=== PATIENT | male | born 1945 | race Caucasian/White ===

== ENCOUNTER 2016-11-30 09:14 | Inpatient (IN) | payer MEDICARE ==
[2016-11-30] MEDS ORDERED: ACETAMINOPHEN IV (For NPO) 1,000 MG in SALINE 100 100ML.BAG IVPB STA (09:21)
[2016-11-30] MEDS ORDERED: IBUPROFEN IV 600 MG in SODIUM CHLORIDE 0.9% 250 ML IV STA (09:22)
--- NOTE | 2016-11-30 09:24 | ED ---
General Adult HPI - General Stated complaint: SOB Time Seen by Provider: 11/30/16 09:14 Source: RN notes reviewed - History of Present Illness Initial comments: This is a 71-year-old male who presents emergency Department with a past medical history significant for cervical spinal fusion after having had a C2 fracture. Patient also has paralysis of his upper and lower extremities but does have movement of his fingers and and feet. According to the senior care the patient was having difficulty breathing however the is here and states she does not notice anything different about him and states that he appears to be in the same condition he has been. There is some also mentioned patient appears to be much weaker than normal. halfway did not mention any fever there was no history of any vomiting or diarrhea there was no history of him complaining of any pain anywhere. I took a temperature when I saw the patient has 100.7 fever - Related Data Home Medications Medication Instructions Recorded Confirmed Acetaminophen [Tylenol] 650 mg PO Q4H PRN 11/30/16 11/30/16 Acetylcysteine Solution 20% 3 ml INHALATION RT-Q1H PRN 11/30/16 11/30/16 Amino Acids/Protein Hydrolys 30 ml PEG/G-TUBE BID@0900,209911/30/16 11/30/16 [Pro-Stat Supplement] Artificial Tears-Hypromellose 1 drops BOTH EYES TID PRN 11/30/16 11/30/16 [Artificial Tear Drops] Ascorbic Acid [Vitamin C] 500 mg PEG/G-TUBE DAILY@0900 11/30/16 11/30/16 Calcipotriene/Betamethasone 1 applic TP DAILY 11/30/16 11/30/16 [Calcipotriene-Betameth Dp Oint] Calcium Carbonate/Vitamin D3 1 tab PEG/G-TUBE HS@209911/30/16 11/30/16 [Calcium 600-Vit D3 200 Tablet] Cholecalciferol [Vitamin D3] 2,000 unit PEG/G-TUBE DAILY@0900 11/30/16 11/30/16 Doxycycline Hyclate 100 mg PEG/G-TUBE BID@0800,209911/30/16 11/30/16 Enoxaparin [Lovenox] 40 mg SQ DAILY@1700 11/30/16 11/30/16 Famotidine [Pepcid] 20 mg PEG/G-TUBE BID@0900,209911/30/16 11/30/16 INSULIN LISPRO (HumaLOG) [HumaLOG] See Protocol SQ Q6H 11/30/16 11/30/16 Ipratropium-Albuterol Nebulize 3 ml INHALATION RT-QID 11/30/16 11/30/16 [Duoneb 0.5 mg-3 mg/3 ml Soln] Metoprolol Tartrate [Lopressor] 25 mg PEG/G-TUBE BID@899,209911/30/16 11/30/16 Sennosides-Docusate Sodium 1 tab PEG/G-TUBE DAILY@89911/30/16 11/30/16 [Senokot-S] Triamcinolone 0.1% Cream [Kenalog] 1 applic TOPICAL HS@199911/30/16 11/30/16 Vitamin E (Dl,Tocopheryl Acet) 400 unit PEG/G-TUBE DAILY@89911/30/16 11/30/16 [Vitamin E] Allergies Allergy/AdvReac Type Severity Reaction Status Date / Time No Known Allergies Allergy Verified 11/30/16 09:19 Review of Systems ROS Statement: Those systems with pertinent positive or pertinent negative responses have been documented in the HPI. ROS Other: All systems not noted in ROS Statement are negative. General Exam - General Exam Comments Initial Comments: GENERAL: Patient is well-developed and well-nourished. Patient is nontoxic and well- hydrated and is in no acute distress. ENT: Neck is soft and supple. No significant lymphadenopathy is noted. Oropharynx is clear. Moist mucous membranes. Neck has full range of motion without eliciting any pain. Tracheostomy site appears to be draining a little bit of blood as well as what appears to be pus EYES: The sclera were anicteric and conjunctiva were pink and moist. Extraocular movements were intact and pupils were equal round and reactive to light. Eyelids were unremarkable. PULMONARY: Unlabored respirations. Good breath sounds bilaterally. Patient has what appears to be some crackles in the left base but difficulty here because he does not take a good breath and he is always making upper respiratory noises. CARDIOVASCULAR: There is a regular rate and rhythm without any murmurs gallops or rubs. ABDOMEN: Soft and nontender with normal bowel sounds. No palpable organomegaly was noted. There is no palpable pulsatile mass. SKIN: Skin is clear with no lesions or rashes and otherwise unremarkable. NEUROLOGIC: Patient is alert and oriented 2. Cranial nerves II through XII are grossly intact. Patient can only move his hands and feet a little. MUSCULOSKELETAL: Normal extremities with adequate strength and full range of motion. No lower extremity swelling or edema. No calf tenderness. LYMPHATICS: No significant lymphadenopathy is noted Course Vital Signs 11/30/16 11/30/16 09:20 09:57 Temperature 100.7 F H 100.1 F H Pulse Rate 108 H 99 Respiratory 36 H 36 H Rate Blood Pressure 140/79 139/79 O2 Sat by Pulse 96 95 Oximetry Medical Decision Making - Medical Decision Making Patient's EKG shows sinus tachycardia at 107 bpm SC interval is 156 dresses 110 QT interval 352 QTC is 469. Patient's EKG shows no ST segment elevation or depression Patient has a urinary tract infection started patient on Levaquin immediately. - Lab Data Result diagrams: 11/30/16 09:48 11/30/16 09:48 Lab Results 11/30/16 11/30/16 11/30/16 Range/Units 09:48 09:48 09:48 WBC 10.1 (3.8-10.6) k/uL RBC 3.94 L (4.30-5.90) m/uL Hgb 12.3 L (13.0-17.5) gm/dL Hct 37.1 L (39.0-53.0) % MCV 94.3 (80.0-100.0) fL MCH 31.2 (25.0-35.0) pg MCHC 33.1 (31.0-37.0) g/dL RDW 14.0 (11.5-15.5) % Plt Count 177 (150-450) k/uL Neutrophils % 83 % Lymphocytes % 6 % Monocytes % 4 % Eosinophils % 6 % Basophils % 0 % Neutrophils # 8.5 H (1.3-7.7) k/uL Lymphocytes # 0.6 L (1.0-4.8) k/uL Monocytes # 0.4 (0-1.0) k/uL Eosinophils # 0.6 (0-0.7) k/uL Basophils # 0.0 (0-0.2) k/uL PT (9.0-12.0) sec INR (<1.1) APTT (22.0-30.0) sec Sodium 140 (137-145) mmol/L Potassium 4.2 (3.5-5.1) mmol/L Chloride 98 (98-107) mmol/L Carbon Dioxide 35 H (22-30) mmol/L Anion Gap 7 mmol/L BUN 13 (9-20) mg/dL Creatinine 0.35 L (0.66-1.25) mg/dL Est GFR (MDRD) Af Amer >60 (>60 ml/min/1.73 sqM) Est GFR (MDRD) Non-Af >60 (>60 ml/min/1.73 sqM) Glucose 167 H (74-99) mg/dL Plasma Lactic Acid Karlo (0.7-2.0) mmol/L Calcium 9.2 (8.4-10.2) mg/dL Magnesium 1.7 (1.6-2.3) mg/dL Total Bilirubin 0.4 (0.2-1.3) mg/dL AST 16 L (17-59) U/L ALT 39 (21-72) U/L Alkaline Phosphatase 115 (38-126) U/L Total Creatine Kinase 71 (55-170) U/L CK-MB (CK-2) 2.1 (0.0-2.4) ng/mL CK-MB (CK-2) Rel Index 3.0 Troponin I <0.012 (0.000-0.034) ng/mL Total Protein 6.3 (6.3-8.2) g/dL Albumin 3.3 L (3.5-5.0) g/dL Urine Color Urine Appearance (Clear) Urine pH (5.0-8.0) Ur Specific [place] (1.001-1.035) Urine Protein (Negative) Urine Glucose (UA) (Negative) Urine Ketones (Negative) Urine Blood (Negative) Urine Nitrate (Negative) Urine Bilirubin (Negative) Urine Urobilinogen (<2.0) mg/dL Ur Leukocyte Esterase (Negative) Urine RBC (0-5) /hpf Urine WBC (0-5) /hpf Urine WBC Clumps (None) /hpf Urine Bacteria (None) /hpf Urine Mucus (None) /hpf Influenza Type A RNA (Not Detectd) Influenza Type B (PCR) (Not Detectd) 11/30/16 11/30/16 11/30/16 Range/Units 09:48 09:48 09:48 WBC (3.8-10.6) k/uL RBC (4.30-5.90) m/uL Hgb (13.0-17.5) gm/dL Hct (39.0-53.0) % MCV (80.0-100.0) fL MCH (25.0-35.0) pg MCHC (31.0-37.0) g/dL RDW (11.5-15.5) % Plt Count (150-450) k/uL Neutrophils % % Lymphocytes % % Monocytes % % Eosinophils % % Basophils % % Neutrophils # (1.3-7.7) k/uL Lymphocytes # (1.0-4.8) k/uL Monocytes # (0-1.0) k/uL Eosinophils # (0-0.7) k/uL Basophils # (0-0.2) k/uL PT 10.3 (9.0-12.0) sec INR 1.0 (<1.1) APTT 23.4 (22.0-30.0) sec Sodium (137-145) mmol/L Potassium (3.5-5.1) mmol/L Chloride (98-107) mmol/L Carbon Dioxide (22-30) mmol/L Anion Gap mmol/L BUN (9-20) mg/dL Creatinine (0.66-1.25) mg/dL Est GFR (MDRD) Af Amer (>60 ml/min/1.73 sqM) Est GFR (MDRD) Non-Af (>60 ml/min/1.73 sqM) Glucose (74-99) mg/dL Plasma Lactic Acid Karlo 1.0 (0.7-2.0) mmol/L Calcium (8.4-10.2) mg/dL Magnesium (1.6-2.3) mg/dL Total Bilirubin (0.2-1.3) mg/dL AST (17-59) U/L ALT (21-72) U/L Alkaline Phosphatase (38-126) U/L Total Creatine Kinase (55-170) U/L CK-MB (CK-2) (0.0-2.4) ng/mL CK-MB (CK-2) Rel Index Troponin I (0.000-0.034) ng/mL Total Protein (6.3-8.2) g/dL Albumin (3.5-5.0) g/dL Urine Color Light Red Urine Appearance Turbid (Clear) Urine pH 6.0 (5.0-8.0) Ur Specific [place] 1.020 (1.001-1.035) Urine Protein 2+ H (Negative) Urine Glucose (UA) Negative (Negative) Urine Ketones Negative (Negative) Urine Blood Large H (Negative) Urine Nitrate Negative (Negative) Urine Bilirubin Negative (Negative) Urine Urobilinogen <2.0 (<2.0) mg/dL Ur Leukocyte Esterase Large H (Negative) Urine RBC >182 H (0-5) /hpf Urine WBC >182 H (0-5) /hpf Urine WBC Clumps Few H (None) /hpf Urine Bacteria Rare H (None) /hpf Urine Mucus Occasional H (None) /hpf Influenza Type A RNA (Not Detectd) Influenza Type B (PCR) (Not Detectd) 11/30/16 Range/Units 09:48 WBC (3.8-10.6) k/uL RBC (4.30-5.90) m/uL Hgb (13.0-17.5) gm/dL Hct (39.0-53.0) % MCV (80.0-100.0) fL MCH (25.0-35.0) pg MCHC (31.0-37.0) g/dL RDW (11.5-15.5) % Plt Count (150-450) k/uL Neutrophils % % Lymphocytes % % Monocytes % % Eosinophils % % Basophils % % Neutrophils # (1.3-7.7) k/uL Lymphocytes # (1.0-4.8) k/uL Monocytes # (0-1.0) k/uL Eosinophils # (0-0.7) k/uL Basophils # (0-0.2) k/uL PT (9.0-12.0) sec INR (<1.1) APTT (22.0-30.0) sec Sodium (137-145) mmol/L Potassium (3.5-5.1) mmol/L Chloride (98-107) mmol/L Carbon Dioxide (22-30) mmol/L Anion Gap mmol/L BUN (9-20) mg/dL Creatinine (0.66-1.25) mg/dL Est GFR (MDRD) Af Amer (>60 ml/min/1.73 sqM) Est GFR (MDRD) Non-Af (>60 ml/min/1.73 sqM) Glucose (74-99) mg/dL Plasma Lactic Acid Karlo (0.7-2.0) mmol/L Calcium (8.4-10.2) mg/dL Magnesium (1.6-2.3) mg/dL Total Bilirubin (0.2-1.3) mg/dL AST (17-59) U/L ALT (21-72) U/L Alkaline Phosphatase (38-126) U/L Total Creatine Kinase (55-170) U/L CK-MB (CK-2) (0.0-2.4) ng/mL CK-MB (CK-2) Rel Index Troponin I (0.000-0.034) ng/mL Total Protein (6.3-8.2) g/dL Albumin (3.5-5.0) g/dL Urine Color Urine Appearance (Clear) Urine pH (5.0-8.0) Ur Specific [place] (1.001-1.035) Urine Protein (Negative) Urine Glucose (UA) (Negative) Urine Ketones (Negative) Urine Blood (Negative) Urine Nitrate (Negative) Urine Bilirubin (Negative) Urine Urobilinogen (<2.0) mg/dL Ur Leukocyte Esterase (Negative) Urine RBC (0-5) /hpf Urine WBC (0-5) /hpf Urine WBC Clumps (None) /hpf Urine Bacteria (None) /hpf Urine Mucus (None) /hpf Influenza Type A RNA Not Detected (Not Detectd) Influenza Type B (PCR) Not Detected (Not Detectd) Disposition Clinical Impression: Urinary tract infection, Generalized weakness Disposition: ADMITTED IP TO THIS [facility] Time of Disposition: 11:20
[2016-11-30 10:00] LABS: Basophils % (A) 0 %; CH 31.2; CHCM 33.2; Eosinophils # (A) 0.6 k/uL (0-0.7); Eosinophils % (A) 6 %; HCT 37.1 % (39.0-53.0); HDW 2.94; HGB 12.3 gm/dL (13.0-17.5); Luc # (Auto) 0.08; Luc % (Auto) 1; Lymphocytes # (A) 0.6 k/uL (1.0-4.8); Lymphocytes % (A) 6 %; MCH 31.2 pg (25.0-35.0); MCHC 33.1 g/dL (31.0-37.0); MCV 94.3 fL (80.0-100.0); Mean Platelet Volume 9.2; Monocytes # (A) 0.4 k/uL (0-1.0); Monocytes % (A) 4 %; Neutrophils # (A) 8.5 k/uL (1.3-7.7); Neutrophils % (A) 83 %; RBC 3.94 m/uL (4.30-5.90); WBC 10.1 k/uL (3.8-10.6)
[2016-11-30 10:07] LABS: Partial Thromboplastin Time 23.4 sec (22.0-30.0); Prothrombin Time 10.3 sec (9.0-12.0)
[2016-11-30 10:09] LABS: Appearance,Urine Turbid (Clear); Bacteria,Urine Rare /hpf; Bilirubin,Urine Negative (Negative); Glucose,Urine (UA) Negative (Negative); Ketones,Urine Negative (Negative); Leukocyte Esterase,Urine Large (Negative); Mucus,Urine Occasional /hpf; Nitrite,Urine Negative (Negative); Particle Count 44841; Protein,Urine 2+ (Negative); RBC,Urine >182 /hpf (0-5); UA Billing (MACRO vs. MICRO) MICRO; Urobilinogen,Urine <2.0 mg/dL (<2.0); WBC,Urine >182 /hpf (0-5)
[2016-11-30 10:12] LABS: ALT 39 U/L (21-72); AST 16 U/L (17-59); Alkaline Phosphatase 115 U/L (38-126); Anion Gap 7 mmol/L; Blood Urea Nitrogen 13 mg/dL (9-20); Calcium 9.2 mg/dL (8.4-10.2); Carbon Dioxide 35 mmol/L (22-30); Chloride 98 mmol/L (98-107); Glucose 167 mg/dL (74-99); Magnesium 1.7 mg/dL (1.6-2.3); Non-African American GFR(MDRD) >60 (>60 ml/min/1.73 sqM); Potassium 4.2 mmol/L (3.5-5.1); Sodium 140 mmol/L (137-145); Total Bilirubin 0.4 mg/dL (0.2-1.3); Total Protein 6.3 g/dL (6.3-8.2)
[2016-11-30 10:21] LABS: Creatine Kinase 71 U/L (55-170)
--- NOTE | 2016-11-30 10:32 | XR ---
EXAMINATION TYPE: XR chest 2V DATE OF EXAM: 11/30/2016 10:26 AM COMPARISON: NONE HISTORY: Shortness of breath TECHNIQUE: Frontal and lateral views of the chest are obtained. FINDINGS: Scattered senescent parenchymal changes noted. Hyperinflation compatible with COPD. No evidence for infiltrate. No evidence for atelectasis. Heart size is stable. Mediastinal structures are stable and grossly unremarkable. No evidence for hilar prominence. Degenerative changes dorsal spine. IMPRESSION: 1. No evidence for acute pulmonary disease.
[2016-11-30 10:34] LABS: Creatine Kinase MB 2.1 ng/mL (0.0-2.4); Troponin I <0.012 ng/mL (0.000-0.034)
[2016-11-30] MEDS ORDERED: LEVOFLOXACIN 750MG-D5W PMX 750 MG in DEXTROSE/WATER 1 150ML.BAG IVPB STA (11:16)
[2016-11-30] MEDS ORDERED: SODIUM CHLORIDE 0.9% 1,000 ML IV ONE (11:21)
[2016-11-30] MEDS ORDERED: ACETYLCYSTEINE 800 MG/4 ML VIAL INHALATION PRN (14:41)
[2016-11-30] MEDS ORDERED: ARTIFICIAL TEARS-HYPROMELLOSE DROPS 15 ML BTL BOTH EYES PRN (14:41)
[2016-11-30] MEDS ORDERED: ACETAMINOPHEN TAB 325 MG TAB PO PRN (14:41)
[2016-11-30] MEDS: IPRATROPIUM-ALBUTEROL 3 ML NEB INHALATION SCH ×2 (15:16→18:59)
[2016-11-30] MEDS: PIPERACILLIN-TAZOBACTAM 3.375 GM in DEXTROSE/WATER 1 50ML.BAG IVPB SCH ×2 (16:41→23:00)
--- NOTE | 2016-11-30 17:21 | P.CNPUL ---
History of Present Illness Consult date: 11/30/16 Requesting physician: Jared Reynolds Reason for consult: dyspnea Chief complaint: Fever History of present illness: This is a 71-year-old gentleman who follows with the doctor Lissette as his primary care physician. He has a history of a fall down the stairs while visiting his while out in [place] visiting his godson. He he had undergone multiple surgeries and extensive rehabilitation for approximately 5 weeks. From there he was transferred back here to [place] and approximately 1-1/2 months ago he had undergone another neurosurgery by Dr. Aguayo at [facility]. [facility] with a tracheostomy tube in place. It's a non-fenestrated #7. According to the patient's and has been For approximately a month and a half. He was recently in the [facility] continuing his recovery. From there he was brought to the emergency room here earlier this morning with what the staff thought was issues with shortness of breath and a fever of 100.7. His would seen him stated he was breathing his normal way and there was no evidence of dyspnea. His chest x-ray showed no acute pulmonary process. Influenza screen was negative. He had a chronic indwelling catheter and his urinalysis showed evidence of a urinary tract infection. The patient was seen today in consultation on the regular medical floor. The patient is awake. He has minimal movement in his hands and feet. The tracheostomy tube is secured in place. He has a cervical collar on currently. He is maintaining good O2 saturations in the mid 90s on 2 L/m per nasal cannula. He has been afebrile. His 's main concern is having the tracheostomy tube removed prior to him being discharged home. Again, this is been capped for one and half months now. Review of Systems ROS unobtainable: due to mental status Past Medical History Past Medical History: Deep Vein Thrombosis (DVT), Eye Disorder, Osteoarthritis ( OA), Pneumonia Additional Past Medical History / Comment(s): 07/2016 pt fell down stairs while out in [place] and suffered cervical fractures-quadriplegia and brain damage , spouse states pt is now able to move legs/feet some and thumbs bilateral hands and fingers on L hand, pt is fed thru peg tube but also is on a regular pureed diet with nectar thick liquids and states he does well with that, pt has days were he is more oriented and days when he is alittle less oriented, he can speak some again and can sing songs at times, he has a capped trach and wears a cervical collar 24 hours a day. He has a chronic wan which spouse states was placed 1 month ago. Pt was admitted to [facility] on 10/25/16 with sepsis, pneumonia, chronic respiratory failure, coccygeal stage 1 ulcer and DVT L axillary vein. Spouse states ulcer healed but has a couple new areas of concern on his bottocks. 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 Past Anesthesia/Blood Transfusion Reactions: No Reported Reaction Past Psychological History: Depression Additional Psychological History / Comment(s): Spouse states his emotions can go up and down since brain injury but states he never relates major depression. He resides at [facility]. So far with PT, he has been assisted to edge of bed (they are working on his core muscles). He has a capped trach and wear oxygen at night more for spouses comfort. He has a chronic wan and a peg tube. He speaks some and sometimes sings songs. Some days he is quite oriented, some days not as much per spouse. Smoking Status: Former smoker Past Alcohol Use History: None Reported Additional Past Alcohol Use History / Comment(s): Pt started smoking as a teen and quit in 2001. Past Drug Use History: None Reported - Past Family History Father Family Medical History: No Reported History Additional Family Medical History / Comment(s): Father was "pretty healthy" and at the age of 85yrs. Mother Family Medical History: No Reported History Additional Family Medical History / Comment(s): Mother at the age of 96yrs. Medications and Allergies Home Medications Medication Instructions Recorded Confirmed Type Acetaminophen [Tylenol] 650 mg PO Q4H PRN 11/30/16 11/30/16 History Acetylcysteine Solution 20% 3 ml INHALATION RT-Q1H PRN 11/30/16 11/30/16 History Amino Acids/Protein Hydrolys 30 ml PEG/G-TUBE BID@0900,209911/30/16 11/30/16 History [Pro-Stat Supplement] Artificial Tears-Hypromellose 1 drops BOTH EYES TID PRN 11/30/16 11/30/16 History [Artificial Tear Drops] Ascorbic Acid [Vitamin C] 500 mg PEG/G-TUBE DAILY@89911/30/16 11/30/16 History Calcipotriene/Betamethasone 1 applic TP DAILY 11/30/16 11/30/16 History [Calcipotriene-Betameth Dp Oint] Calcium Carbonate/Vitamin D3 1 tab PEG/G-TUBE HS@209911/30/16 11/30/16 History [Calcium 600-Vit D3 200 Tablet] Cholecalciferol [Vitamin D3] 2,000 unit PEG/G-TUBE DAILY@89911/30/16 11/30/16 History Doxycycline Hyclate 100 mg PEG/G-TUBE BID@0800,209911/30/16 11/30/16 History Enoxaparin [Lovenox] 40 mg SQ DAILY@1700 11/30/16 11/30/16 History Famotidine [Pepcid] 20 mg PEG/G-TUBE BID@0900,209911/30/16 11/30/16 History INSULIN LISPRO (HumaLOG) [HumaLOG] See Protocol SQ Q6H 11/30/16 11/30/16 History Ipratropium-Albuterol Nebulize 3 ml INHALATION RT-QID 11/30/16 11/30/16 History [Duoneb 0.5 mg-3 mg/3 ml Soln] Metoprolol Tartrate [Lopressor] 25 mg PEG/G-TUBE BID@0900,209911/30/16 History Sennosides-Docusate Sodium 1 tab PEG/G-TUBE DAILY@89911/30/16 11/30/16 History [Senokot-S] Triamcinolone 0.1% Cream [Kenalog] 1 applic TOPICAL HS@199911/30/16 11/30/16 History Vitamin E (Dl,Tocopheryl Acet) 400 unit PEG/G-TUBE DAILY@89911/30/16 11/30/16 History [Vitamin E] Allergies Allergy/AdvReac Type Severity Reaction Status Date / Time No Known Allergies Allergy Verified 11/30/16 09:19 Physical Exam Vitals: Vital Signs Temp Pulse Pulse Resp BP BP Pulse Ox 11/30/16 16:04 98.3 F 96 14 101/63 95 11/30/16 15:37 88 11/30/16 15:17 88 11/30/16 13:13 98.2 F 82 20 129/74 94 L 11/30/16 13:12 98.2 F 11/30/16 12:27 99.2 F 88 34 H 141/84 96 Intake and Output 11/30/16 11/30/16 11/30/16 06:59 14:59 22:59 Other: Weight 70.307 kg Patient Weight 12/01/16 06:59 Weight 70.307 kg GENERAL EXAM: Arousable, stenting as he opens his eyes, comfortable in no apparent distress. HEAD: Normocephalic. EYES: Normal reaction of pupils, equal size. NOSE: Clear with pink turbinates. THROAT: No erythema or exudates. NECK: Tracheostomy tube secured in place. No masses, no JVD. CHEST: No chest wall deformity. LUNGS: Equal air entry with no crackles, wheeze, rhonchi or dullness. CVS: S1 and S2 normal with no audible murmurs, regular rhythm. ABDOMEN: No hepatosplenomegaly, normal bowel sounds, no guarding or rigidity. Extremities: There is trace peripheral edema. Minimal movement. Pulses are intact. Results - Laboratory Findings CBC and BMP: 11/30/16 09:48 11/30/16 09:48 PT/INR, D-dimer PT 10.3 sec (9.0-12.0) 11/30/16 09:48 INR 1.0 (<1.1) 11/30/16 09:48 - Diagnostic Findings Chest x-ray: image reviewed (No acute pulmonary process.) Assessment and Plan Plan: Impression: #1 Febrile illness secondary to suspected urinary tract infection, cultures are pending. #2 Closed head injury secondary to fall back in July 2016 while visiting in [place] with extensive rehabilitation. #3 Cervical spine fracture secondary to fall down the stairs back in July 2016. Most recent surgery by Dr. Aguayo at [facility] approximate one and half months ago. #4 Chronic tracheostomy tube that has been capped approximately 1-1/2 months. #5 PEG tube for nutritional support. Plan: The patient was seen and evaluated by Dr. Beatty. His chest x-ray and labs were reviewed. He did go ahead and de cannulate the patient. We noted the tracheostomy tube to be nonfenestrated. The patient tolerated the procedure well. A dry dressing was applied over the stoma. He remains in no respiratory distress. We'll continue with the patient's bronchodilators 4 times a day and when necessary. He is on antibiotics in the form of Zosyn. He is on Lovenox for DVT prophylaxis and Pepcid for GI prophylaxis via the PEG tube. We were consulted regarding the tracheostomy tube which has now been removed. We'll follow the patient on as-needed basis.
[2016-11-30] MEDS: ENOXAPARIN 40 MG/0.4 ML SYRINGE SQ SCH (18:23)
--- NOTE | 2016-11-30 19:43 | HP ---
DATE OF ADMISSION: This patient is a 71-year-old with a C2 fracture, paraplegia, prison resident with chronic weakness in all the 4 limbs, PEG tube, tracheostomy and a chronic Julian catheter. He came in because he had a high-grade fever in the prison. Patient is admitted for evaluation for sepsis. Patient denied any cough. Chest x-ray did not show any pneumonic process. Patient is mostly nonverbal, although patient's says he is communicative. Patient although has a tracheostomy in place and does use a modified diet along with PEG tube feedings. Patient does have strength of 1/5 in all the 4 extremities. Patient's PEG tube site is clean. Tracheostomy site is questionable for some pus coming out of the tracheostomy site, which will be cultured. Patient's Julian catheter urine looks dark, which showed large leukocyte esterase, greater than 182 RBCs and greater than 182 WBCs, WBC clumps. Patient was started on levofloxacin for urinary tract infection. I am going to change it to Rocephin; actually probably Zosyn is more appropriate, considering his chronic Julian catheter, for which we may need to cover pseudomonas as well. I will go ahead and consult Infectious Disease. Cultures from the tracheostomy site will be obtained. REVIEW OF SYSTEMS: Unable to obtain due to his clinical condition. Home medications include: 1. Acetaminophen. 2. Acetylcysteine. 3. Amino acids. 4. Artificial Tears. 5. Ascorbic acid. 6. Calcium carbonate. 7. Doxycycline. 8. Enoxaparin. 9. Famotidine. 10. Ipratropium. 11. Senna. 12. Triamcinolone cream. ALLERGIES: NO KNOWN DRUG ALLERGIES. PAST MEDICAL HISTORY: 1. C2 fracture with paraplegia. 2. DVT in the past. 3. Osteoarthritis. SOCIAL HISTORY: Denied any smoking, alcohol abuse or any drug abuse. FAMILY HISTORY: Father was pretty healthy; at age 85. PHYSICAL EXAMINATION: VITAL SIGNS: Temperature 98.2, pulse of 88, respiratory rate of 20, blood pressure 141/84. Saturating at 94% on 2 L of oxygen by nasal cannula. GENERAL: The patient is alert and oriented x3, not in any acute distress. Well developed, well nourished. HEENT: Pupils are round and equally reacting to light. EOMI. No scleral icterus. No conjunctival pallor. Normocephalic, atraumatic. No pharyngeal erythema. No thyromegaly. Tracheostomy site appears to be clean mostly except for one area of questionable little pus coming out of it, which we will culture. CARDIOVASCULAR: S1 and S2 present. No murmurs, rubs, or gallops. PULMONARY: Chest is clear to auscultation, no wheezing or crackles. ABDOMEN: PEG tube site area appears to be clear. No decubitus ulcers were found. Patient has a Julian catheter in place. MUSCULOSKELETAL: No joint swelling or deformity. EXTREMITIES: No cyanosis, clubbing, or pedal edema. NEUROLOGICAL: Chronic weakness. No focal neurological deficits were appreciated. SKIN: No rashes. LABORATORY DATA: CBC, CMP are essentially within normal limits. UA as mentioned above. Influenza testing is negative. ASSESSMENT AND PLAN: 1. Sepsis, possible source being urinary tract infection with chronic Julian catheter. Patient will be started on Zosyn to cover pseudomonas because of his chronic Julian catheter. Julian catheter will be replaced. We are awaiting urine cultures. Also culture from the tracheostomy site will be obtained. 2. C2 paraplegia, for which patient has a tracheostomy. 3. C2 fracture. Patient is quadriplegic. Supportive care for that. 4. Apparently patient had a deep venous thrombosis in the past, although patient is not on anticoagulation ( ) patient is only on 50 mg of enoxaparin, which will be continued, which is prophylactic dose. Patient's primary care physician is Dr. Keshawn Mclaughlin.
[2016-11-30] MEDS: FAMOTIDINE 20 MG TAB PEG/G-TUBE SCH (20:45)
[2016-11-30] MEDS: METOPROLOL TARTRATE 25 MG TAB PEG/G-TUBE SCH (20:45)
[2016-11-30] MEDS: TRIAMCINOLONE 0.1% CREAM 80 GM TUBE TOPICAL SCH (20:59)
[2016-11-30] MEDS ORDERED: NON-FORMULARY DRUG (Amino Acids/Protein Hydrolys [Pro-Stat Supplement] 30 ML) PEG/G-TUBE SCH (21:00)
[2016-12-01 00:09] LABS: Glucose,Whole Blood 186 mg/dL (75-99)
[2016-12-01 06:24] LABS: CH 30.6; CHCM 31.6; HCT 36.8 % (39.0-53.0); HGB 11.6 gm/dL (13.0-17.5); Hypochromasia Slight; MCH 30.7 pg (25.0-35.0); MCHC 31.6 g/dL (31.0-37.0); MCV 97.2 fL (80.0-100.0); Mean Platelet Volume 8.3; RBC 3.79 m/uL (4.30-5.90); WBC 6.6 k/uL (3.8-10.6)
[2016-12-01 06:34] LABS: Anion Gap 5 mmol/L; Blood Urea Nitrogen 13 mg/dL (9-20); Calcium 9.1 mg/dL (8.4-10.2); Carbon Dioxide 34 mmol/L (22-30); Chloride 103 mmol/L (98-107); Glucose 177 mg/dL (74-99); Non-African American GFR(MDRD) >60 (>60 ml/min/1.73 sqM); Potassium 4.3 mmol/L (3.5-5.1); Sodium 142 mmol/L (137-145)
[2016-12-01] MEDS: PIPERACILLIN-TAZOBACTAM 3.375 GM in DEXTROSE/WATER 1 50ML.BAG IVPB SCH ×2 (08:05→16:52)
[2016-12-01] MEDS: METOPROLOL TARTRATE 25 MG TAB PEG/G-TUBE SCH ×2 (08:06→21:45)
[2016-12-01] MEDS: SENNOSIDES-DOCUSATE SODIUM 1 EACH TAB PO SCH (08:06)
[2016-12-01] MEDS: FAMOTIDINE 20 MG TAB PEG/G-TUBE SCH ×2 (08:06→21:45)
[2016-12-01] MEDS: IPRATROPIUM-ALBUTEROL 3 ML NEB INHALATION SCH ×4 (08:25→20:17)
[2016-12-01] MEDS ORDERED: BETAMETHASONE TP SCH (09:00)
[2016-12-01] MEDS ORDERED: [UNRECOGNIZED DRUG - OTHER] TP SCH (09:00)
[2016-12-01] MEDS ORDERED: CALCIPOTRIENE TP SCH (09:00)
[2016-12-01] MEDS ORDERED: INSULIN LISPRO (humaLOG) 300 UNIT/3 ML VIAL SQ SCH (09:30)
[2016-12-01] MEDS ORDERED: LEVOFLOXACIN 750MG-D5W PMX 750 MG in DEXTROSE/WATER 1 150ML.BAG IVPB SCH (12:00)
[2016-12-01 12:50] LABS: Glucose,Whole Blood 191 mg/dL (75-99)
[2016-12-01] MEDS: INSULIN LISPRO (humaLOG) 300 UNIT/3 ML VIAL SQ SCH ×2 (13:21→18:19)
--- NOTE | 2016-12-01 17:56 | PN ---
A 71-year-old admitted with paraplegia admitted for possible urinary tract infection secondary to that. Patient is afebrile today and patient is on Zosyn. Unfortunately, I do not have any urine cultures yet and once I get the urine culture sensitivities patient can be discharged tomorrow. REVIEW OF SYSTEMS: Unable to obtain as the patient is mostly nonverbal. Medications were reviewed. PHYSICAL EXAMINATION: Temperature 99.2, pulse of 88, respiratory rate of 18, blood pressure 133/97, saturating at 97% on room air. GENERAL: The patient is alert and oriented x3, not in any acute distress. Well developed, well nourished. HEENT: Pupils are round and equally reacting to light. EOMI. No scleral icterus. No conjunctival pallor. Normocephalic, atraumatic. No pharyngeal erythema. No thyromegaly. CARDIOVASCULAR: S1 and S2 present. No murmurs, rubs, or gallops. PULMONARY: Chest is clear to auscultation, no wheezing or crackles. ABDOMEN: Soft, nontender, nondistended, normoactive bowel sounds. No palpable organomegaly. MUSCULOSKELETAL: No joint swelling or deformity. EXTREMITIES: No cyanosis, clubbing, or pedal edema. NEUROLOGICAL: No focal neurological deficits were appreciated. SKIN: No rashes. LABORATORY DATA: CBC, comprehensive metabolic profile, no significant abnormality was appreciated. ASSESSMENT AND PLAN: 1. Sepsis secondary to possible urinary tract infection. Continue Zosyn. 2. Paraplegia. 3. Deep venous thrombosis in the past. The patient is on deep venous thrombosis prophylactic dose of enoxaparin, which will be continued. 4. Generalized weakness and history of head injury with some chronic weakness. 5. Patient had a tracheostomy, which was closed and his trach tube was removed.
[2016-12-01] MEDS: ENOXAPARIN 40 MG/0.4 ML SYRINGE SQ SCH (18:19)
[2016-12-01 18:21] LABS: Glucose,Whole Blood 108 mg/dL (75-99)
[2016-12-01] MEDS: CHLORHEXIDINE GLUCONATE 15 ML CUP MUCOUS MEM SCH (21:44)
[2016-12-01] MEDS: TRIAMCINOLONE 0.1% CREAM 80 GM TUBE TOPICAL SCH (21:44)
[2016-12-01 23:58] LABS: Glucose,Whole Blood 145 mg/dL (75-99)
[2016-12-02] MEDS: PIPERACILLIN-TAZOBACTAM 3.375 GM in DEXTROSE/WATER 1 50ML.BAG IVPB SCH ×3 (00:27→16:03)
[2016-12-02] MEDS: INSULIN LISPRO (humaLOG) 300 UNIT/3 ML VIAL SQ SCH ×4 (00:28→18:10)
[2016-12-02 06:01] LABS: Glucose,Whole Blood 177 mg/dL (75-99)
[2016-12-02] MEDS: IPRATROPIUM-ALBUTEROL 3 ML NEB INHALATION SCH ×4 (08:11→19:22)
[2016-12-02] MEDS: FAMOTIDINE 20 MG TAB PEG/G-TUBE SCH ×2 (08:21→21:32)
[2016-12-02] MEDS: CHLORHEXIDINE GLUCONATE 15 ML CUP MUCOUS MEM SCH ×2 (08:23→21:19)
[2016-12-02] MEDS: METOPROLOL TARTRATE 25 MG TAB PEG/G-TUBE SCH ×2 (09:39→21:31)
[2016-12-02] MEDS: SENNOSIDES-DOCUSATE SODIUM 1 EACH TAB PO SCH (13:32)
[2016-12-02] MEDS: ENOXAPARIN 40 MG/0.4 ML SYRINGE SQ SCH (16:26)
[2016-12-02] MEDS: NYSTATIN 100,000 UNIT/ML SUSP 500,000 UNIT/5 ML CUP PO SCH ×2 (17:52→21:32)
[2016-12-02 18:00] LABS: Glucose,Whole Blood 164 mg/dL (75-99)
--- NOTE | 2016-12-02 20:05 | PN ---
A 71-year-old admitted with paraplegia admitted for possible urinary tract infection secondary to that. Patient is afebrile today and patient is on Zosyn. Unfortunately, I do not have any urine cultures yet and once I get the urine culture sensitivities patient can be discharged tomorrow. REVIEW OF SYSTEMS: Unable to obtain as the patient is mostly nonverbal. Medications were reviewed. PHYSICAL EXAMINATION: VITAL SIGNS: Temperature 97.1, pulse of 79, respirate of 20, blood pressure is 112/60, saturating at 95% on 2 liters of O2 nasal cannula. GENERAL: The patient is alert and oriented x3, not in any acute distress. Well developed, well nourished. HEENT: Pupils are round and equally reacting to light. EOMI. No scleral icterus. No conjunctival pallor. Normocephalic, atraumatic. No pharyngeal erythema. No thyromegaly. CARDIOVASCULAR: S1 and S2 present. No murmurs, rubs, or gallops. PULMONARY: Chest is clear to auscultation, no wheezing or crackles. ABDOMEN: Soft, nontender, nondistended, normoactive bowel sounds. No palpable organomegaly. MUSCULOSKELETAL: No joint swelling or deformity. EXTREMITIES: No cyanosis, clubbing, or pedal edema. NEUROLOGICAL: No focal neurological deficits were appreciated. SKIN: No rashes. LABORATORY DATA: CBC, comprehensive metabolic profile, no significant abnormality was appreciated. ASSESSMENT AND PLAN: 1. Sepsis secondary to possible urinary tract infection. Continue Zosyn. 2. Paraplegia. 3. Deep venous thrombosis in the past. The patient is on deep venous thrombosis prophylactic dose of enoxaparin, which will be continued. 4. Generalized weakness and history of head injury with some chronic weakness. 5. Patient had a tracheostomy, which was closed and his trach tube was removed.
[2016-12-02] MEDS: TRIAMCINOLONE 0.1% CREAM 80 GM TUBE TOPICAL SCH (21:18)
[2016-12-03] MEDS: PIPERACILLIN-TAZOBACTAM 3.375 GM in DEXTROSE/WATER 1 50ML.BAG IVPB SCH ×3 (00:31→15:12)
[2016-12-03] MEDS: INSULIN LISPRO (humaLOG) 300 UNIT/3 ML VIAL SQ SCH ×4 (00:32→17:47)
[2016-12-03 00:38] LABS: Glucose,Whole Blood 176 mg/dL (75-99)
[2016-12-03 05:52] LABS: Glucose,Whole Blood 195 mg/dL (75-99)
[2016-12-03] MEDS: FAMOTIDINE 20 MG TAB PEG/G-TUBE SCH ×2 (07:55→21:55)
[2016-12-03] MEDS: CHLORHEXIDINE GLUCONATE 15 ML CUP MUCOUS MEM SCH ×2 (07:55→21:54)
[2016-12-03] MEDS: METOPROLOL TARTRATE 25 MG TAB PEG/G-TUBE SCH ×2 (07:55→21:55)
[2016-12-03] MEDS: NYSTATIN 100,000 UNIT/ML SUSP 500,000 UNIT/5 ML CUP PO SCH ×4 (07:56→22:04)
[2016-12-03] MEDS: IPRATROPIUM-ALBUTEROL 3 ML NEB INHALATION SCH ×4 (09:40→19:10)
[2016-12-03] MEDS: SENNOSIDES-DOCUSATE SODIUM 1 EACH TAB PO SCH (11:05)
[2016-12-03 11:37] LABS: Glucose,Whole Blood 206 mg/dL (75-99)
--- NOTE | 2016-12-03 12:35 | PN ---
Patient is paraplegic admitted with chronic Julian catheter and is being treated for urinary tract infection. The patient is on Zosyn. All the cultures so far are negative and patient is awaiting disposition to [facility]. If we are unable to send him on Monday to [facility], patient will be transferred back to his rehab. REVIEW OF SYSTEMS: CARDIOVASCULAR: No chest pain, no orthopnea, no PND, no palpitations. PULMONARY: Denied any shortness of breath. No cough or hemoptysis. GASTROINTESTINAL: No diarrhea, nausea or vomiting. No abdominal pain. Normoactive bowel sounds. NEUROLOGIC: No headaches, no weakness, no numbness. Medications were reviewed. PHYSICAL EXAMINATION: Temperature 98.4, pulse of 96, respiratory rate of 16, blood pressure is 135/79. Saturating at 95% on room air. GENERAL: The patient is alert and oriented x3, not in any acute distress. Well developed, well nourished. HEENT: Pupils are round and equally reacting to light. EOMI. No scleral icterus. No conjunctival pallor. Normocephalic, atraumatic. No pharyngeal erythema. No thyromegaly. CARDIOVASCULAR: S1 and S2 present. No murmurs, rubs, or gallops. PULMONARY: Chest is clear to auscultation, no wheezing or crackles. ABDOMEN: Soft, nontender, nondistended, normoactive bowel sounds. No palpable organomegaly. MUSCULOSKELETAL: No joint swelling or deformity. EXTREMITIES: No cyanosis, clubbing, or pedal edema. NEUROLOGICAL: No focal neurological deficits were appreciated. SKIN: No rashes. ASSESSMENT AND PLAN: 1. Sepsis secondary to possible urinary tract infection. Continue Zosyn. 2. Paraplegia. 3. Deep venous thrombosis in the past. The patient is on deep venous thrombosis prophylactic dose of enoxaparin, which will be continued. 4. Generalized weakness and history of head injury with some chronic weakness. 5. Patient had a tracheostomy, which was closed and his trach tube was removed. Patient is awaiting disposition to subacute to [facility]
[2016-12-03 17:49] LABS: Glucose,Whole Blood 124 mg/dL (75-99)
[2016-12-03] MEDS: ENOXAPARIN 40 MG/0.4 ML SYRINGE SQ SCH (17:56)
[2016-12-03] MEDS: TRIAMCINOLONE 0.1% CREAM 80 GM TUBE TOPICAL SCH (22:51)
[2016-12-03 23:58] LABS: Glucose,Whole Blood 163 mg/dL (75-99)
[2016-12-04] MEDS: INSULIN LISPRO (humaLOG) 300 UNIT/3 ML VIAL SQ SCH ×4 (00:26→17:46)
[2016-12-04] MEDS: PIPERACILLIN-TAZOBACTAM 3.375 GM in DEXTROSE/WATER 1 50ML.BAG IVPB SCH ×3 (00:27→17:44)
[2016-12-04 06:06] LABS: Glucose,Whole Blood 203 mg/dL (75-99)
[2016-12-04 07:22] LABS: CH 30.9; CHCM 31.7; HCT 37.1 % (39.0-53.0); HDW 2.84; HGB 11.9 gm/dL (13.0-17.5); Hypochromasia Slight; MCH 31.3 pg (25.0-35.0); MCV 97.9 fL (80.0-100.0); RBC 3.79 m/uL (4.30-5.90); RDW 13.9 % (11.5-15.5); WBC 6.3 k/uL (3.8-10.6)
[2016-12-04 07:37] LABS: Anion Gap 7 mmol/L; Blood Urea Nitrogen 14 mg/dL (9-20); Calcium 9.4 mg/dL (8.4-10.2); Carbon Dioxide 37 mmol/L (22-30); Chloride 101 mmol/L (98-107); Glucose 171 mg/dL (74-99); Non-African American GFR(MDRD) >60 (>60 ml/min/1.73 sqM); Potassium 4.3 mmol/L (3.5-5.1); Sodium 145 mmol/L (137-145)
[2016-12-04] MEDS: NYSTATIN 100,000 UNIT/ML SUSP 500,000 UNIT/5 ML CUP PO SCH ×4 (07:40→22:11)
[2016-12-04] MEDS: CHLORHEXIDINE GLUCONATE 15 ML CUP MUCOUS MEM SCH ×2 (07:40→22:11)
[2016-12-04] MEDS: METOPROLOL TARTRATE 25 MG TAB PEG/G-TUBE SCH ×2 (07:40→22:11)
[2016-12-04] MEDS: IPRATROPIUM-ALBUTEROL 3 ML NEB INHALATION SCH ×4 (08:14→20:41)
--- NOTE | 2016-12-04 11:32 | PN ---
Patient is a 71-year-old paraplegic who has a posttraumatic neck injury and patient is awaiting disposition to rehab in ( [facility]. Patient is on Zosyn for urinary tract infection. All the cultures are negative, unfortunately we got the cultures after treatment with antibiotics. Patient's urine is showing yeast probably because of the antibiotics and patient will be given Fluconazole for that and family is concerned about left arm swelling because of which will obtain a Doppler of the left lower extremity. Patient is on DVT prophylactic dose of Lovenox at this point of time. REVIEW OF SYSTEMS: Unable to obtain as patient is nonverbal mostly, but does not appear to have any issues at this time. Medications were reviewed. PHYSICAL EXAMINATION: VITAL SIGNS: Temperature 99.6, pulse of 92, respiratory rate of 17. Blood pressure is 133/81, saturating at 94% on 2 L of O2 by nasal cannula. GENERAL: The patient is alert. Well developed, well nourished. HEENT: Pupils are round and equally reacting to light. EOMI. No scleral icterus. No conjunctival pallor. Normocephalic, atraumatic. No pharyngeal erythema. No thyromegaly. CARDIOVASCULAR: S1 and S2 present. No murmurs, rubs, or gallops. PULMONARY: Chest is clear to auscultation, no wheezing or crackles. ABDOMEN: Soft, nontender, nondistended, normoactive bowel sounds. No palpable organomegaly. MUSCULOSKELETAL: No joint swelling or deformity. SKIN: No rashes. NEUROLOGICAL: No significant change compared to yesterday. EXTREMITIES: Patient has left arm swelling. Patient is mostly nonverbal. Alert, unable to assess orientation as patient is mostly nonverbal. LABORATORY DATA: CBC, CMP, essentially within normal limits. ASSESSMENT AND PLAN: 1. Sepsis most probably secondary to urinary tract infection for catheter-related and patient will be discharged on Augmentin for 5 more days. 2. Paraplegia. 3. Deep venous thrombosis in the past. 4. Generalized weakness secondary to head injury. 5. Patient had a tracheostomy, trach tube is removed on admission. Awaiting disposition to rehab. 6. Left arm swelling, will obtain a Doppler of the left upper extremity. Patient had a deep venous thrombosis in the past.
--- NOTE | 2016-12-04 11:55 | US ---
EXAMINATION TYPE: US venous doppler duplex UE LT DATE OF EXAM: 12/04/2016 11:33 AM COMPARISON: NONE CLINICAL HISTORY: R/O DVT. SIDE PERFORMED: Left TECHNOLOGIST IMPRESSION: Patient paraplegic, unable to cooperate, patient stiff and unable to adduct arm, stiffened when certified rehabilitation counselor tried to compress veins, unable to scan radial/ulnar veins due to in ability to adduct arm. SOB Left Arm: Appears negative for DVT from IJV to brachial v's at elbow, however exam very limited and t echnically difficult. Radial/ulnar veins not scanned, cephalic vein not visualized IMPRESSION: 1. No acute deep venous thrombosis left upper extremity.
[2016-12-04 11:59] LABS: Glucose,Whole Blood 199 mg/dL (75-99)
[2016-12-04] MEDS: FAMOTIDINE 20 MG TAB PEG/G-TUBE SCH ×2 (12:25→22:11)
[2016-12-04] MEDS: SENNOSIDES-DOCUSATE SODIUM 1 EACH TAB PO SCH (12:25)
[2016-12-04] MEDS: FLUCONAZOLE ORAL SUSP 1,400 MG/35 ML BOTTLE PEG/G-TUBE SCH (13:08)
[2016-12-04 17:26] LABS: Glucose,Whole Blood 144 mg/dL (75-99)
[2016-12-04] MEDS: ENOXAPARIN 40 MG/0.4 ML SYRINGE SQ SCH (17:45)
[2016-12-04] MEDS ORDERED: traMADol 50 MG TAB PO SCH (18:00)
[2016-12-04] MEDS: TRIAMCINOLONE 0.1% CREAM 80 GM TUBE TOPICAL SCH (22:10)
[2016-12-05 00:12] LABS: Glucose,Whole Blood 178 mg/dL (75-99)
[2016-12-05] MEDS: INSULIN LISPRO (humaLOG) 300 UNIT/3 ML VIAL SQ SCH ×4 (00:14→18:12)
[2016-12-05] MEDS: PIPERACILLIN-TAZOBACTAM 3.375 GM in DEXTROSE/WATER 1 50ML.BAG IVPB SCH ×3 (00:14→09:40)
[2016-12-05 05:53] LABS: Glucose,Whole Blood 207 mg/dL (75-99)
[2016-12-05] MEDS: IPRATROPIUM-ALBUTEROL 3 ML NEB INHALATION SCH ×4 (07:11→19:13)
[2016-12-05 07:39] LABS: Glucose,Whole Blood 178 mg/dL (75-99)
[2016-12-05] MEDS ORDERED: INDOMETHACIN 50MG SUPPOSITORY RECTAL ONE (08:06)
[2016-12-05] MEDS: FLUCONAZOLE ORAL SUSP 1,400 MG/35 ML BOTTLE PEG/G-TUBE SCH (09:16)
[2016-12-05] MEDS: FAMOTIDINE 20 MG TAB PEG/G-TUBE SCH ×2 (09:18→21:43)
[2016-12-05] MEDS: CHLORHEXIDINE GLUCONATE 15 ML CUP MUCOUS MEM SCH ×2 (09:18→21:42)
[2016-12-05] MEDS: METOPROLOL TARTRATE 25 MG TAB PEG/G-TUBE SCH ×2 (09:18→21:43)
[2016-12-05] MEDS: NYSTATIN 100,000 UNIT/ML SUSP 500,000 UNIT/5 ML CUP PO SCH ×4 (09:19→21:43)
[2016-12-05] MEDS: SENNOSIDES-DOCUSATE SODIUM 1 EACH TAB PO SCH (09:20)
--- NOTE | 2016-12-05 10:57 | XR ---
EXAMINATION TYPE: XR chest 1V DATE OF EXAM: 12/05/2016 10:51 AM CLINICAL HISTORY: Difficulty breathing progress study. Generalized weakness and UTI. TECHNIQUE: Single AP portable upright view of the chest is obtained. COMPARISON: Chest x-ray from 5 days earlier. FINDINGS: Cardiac silhouette size is stable and upper limits of normal. Some increased reticulonodul ar markings bilaterally could reflect fibrosis and/or edema unchanged from prior. No new suspicious f ocal airspace opacity, pleural effusion, or pneumothorax is seen bilaterally. Postsurgical changes ce rvical spine are redemonstrated. Advanced degenerative change bilateral glenohumeral joints is again seen. IMPRESSION: Overall stable findings, mild bilateral reticular interstitial edema and/or fibrosis re demonstrated, no new suspicious focal infiltrate is seen.
--- NOTE | 2016-12-05 11:30 | DS ---
DATE OF ADMISSION: 11/30/2016 DATE OF DISCHARGE: Patient is a 71-year-old, came in with post traumatic neck injury and leading to paraplegia and patient is mostly bedbound and patient has a tracheostomy, which was discontinued here and tracheostomy tube was closed here. Patient came in febrile. All the cultures are so far negative except for gram-positive bacilli in the tracheal cultures for which patient will not need any antibiotics as ( ) organisms. Patient has hayden in the urine, which is secondary to Julian catheter and IV antibiotics. Family has concerns regarding being on oxygen as his saturations are dropping apparently without oxygen. Will get rid of the oxygen, make him do incentive spirometry. I believe it is due to atelectasis, get a chest x-ray. If he is doing well without oxygen, patient will be discharged back to either subacute penitentiary or rehabilitation in [facility] and patient will be discharged on 5 days of Augmentin and 6 days fluconazole. Patient was seen and examined on the day of discharge. Patient is being treated for urinary tract infection that is the only source that I can identify and patient has a Julian catheter. Julian catheter was replaced here. REVIEW OF SYSTEMS: Unable to obtain due to his clinical condition. PHYSICAL EXAMINATION: VITAL SIGNS: Temperature 99.0, pulse of 80, respiratory rate of 20, blood pressure is 125/63, saturating at 95% on 2 L of O2 by nasal cannula. GENERAL: Patient is mostly nonverbal, alert, unable to assess orientation. NEUROLOGICAL: No new focal neurological deficits. Patient's PEG tube site appears to be clean. LUNGS: A little bit of crackles in the bilateral lung bases were heard. Good air entry into bilateral lung rosas. No wheezing was appreciated. Patient's PEG tube site is clean. Patient had an ultrasound Doppler of the left upper extremity, which did not show any DVT. HEENT: Pupils are round and equally reacting to light. EOMI. No scleral icterus. No conjunctival pallor. Normocephalic, atraumatic. No pharyngeal erythema. No thyromegaly. CARDIOVASCULAR: S1 and S2 present. No murmurs, rubs, or gallops. ABDOMEN: Soft, nontender, nondistended, normoactive bowel sounds. No palpable organomegaly. MUSCULOSKELETAL: No joint swelling or deformity. SKIN: No rashes. ASSESSMENT AND PLAN: 1. Sepsis most probably secondary to urinary tract infection, catheter-related and patient will be discharged on Augmentin for actually 4 more days and completing 10-day course of therapy and 5 days of fluconazole because of hayden in the urine and this hayden in the urine is secondary to antibiotics. 2. Julian catheter and patient's Julian catheter need to be reassessed as an outpatient. Will need a Urology followup and urodynamic studies probably need to be done and attempt need to be made to discontinue the Julian catheter as an outpatient. 3. Paraplegia. 4. Deep venous thrombosis in the past for which patient is only on a DVT prophylactic dose of enoxaparin which will be continued. 5. Generalized weakness secondary to head injury. 6. Patient had tracheostomy tube which was removed on this admission. 7. Left arm swelling with negative Doppler for any deep venous thrombosis. Spent greater than 35 minutes in total discharge process. DISCHARGE DIET: Patient will resume his PEG tube feedings. Activity as per the facility and as per the physician at the facility. Patient will follow up with the physician at the facility.
[2016-12-05 11:57] LABS: Glucose,Whole Blood 156 mg/dL (75-99)
[2016-12-05 14:29] VITALS: BMI 27.6
[2016-12-05 17:12] LABS: Glucose,Whole Blood 147 mg/dL (75-99)
[2016-12-05] MEDS: ENOXAPARIN 40 MG/0.4 ML SYRINGE SQ SCH (18:13)
[2016-12-05] MEDS: TRIAMCINOLONE 0.1% CREAM 80 GM TUBE TOPICAL SCH (21:17)
[2016-12-05] MEDS: AMOXIC-POT CLAV 875-125MG 1 EACH TAB PO SCH (21:42)
[2016-12-06 00:10] LABS: Glucose,Whole Blood 137 mg/dL (75-99)
[2016-12-06] MEDS: INSULIN LISPRO (humaLOG) 300 UNIT/3 ML VIAL SQ SCH ×3 (00:10→12:10)
[2016-12-06 05:56] LABS: Glucose,Whole Blood 182 mg/dL (75-99)
[2016-12-06] MEDS: IPRATROPIUM-ALBUTEROL 3 ML NEB INHALATION SCH ×2 (07:21→11:14)
[2016-12-06 08:24] VITALS: BP 158/86; RESP 17; TEMP 99.2
[2016-12-06] MEDS: AMOXIC-POT CLAV 875-125MG 1 EACH TAB PO SCH (08:43)
[2016-12-06] MEDS: CHLORHEXIDINE GLUCONATE 15 ML CUP MUCOUS MEM SCH (08:43)
[2016-12-06] MEDS: FAMOTIDINE 20 MG TAB PEG/G-TUBE SCH (08:44)
[2016-12-06] MEDS: FLUCONAZOLE ORAL SUSP 1,400 MG/35 ML BOTTLE PEG/G-TUBE SCH (08:44)
[2016-12-06] MEDS: NYSTATIN 100,000 UNIT/ML SUSP 500,000 UNIT/5 ML CUP PO SCH ×2 (08:44→12:11)
[2016-12-06] MEDS: METOPROLOL TARTRATE 25 MG TAB PEG/G-TUBE SCH (08:44)
[2016-12-06] MEDS: SENNOSIDES-DOCUSATE SODIUM 1 EACH TAB PO SCH (08:48)
[2016-12-06 11:34] VITALS: PULSE 88
[2016-12-06 12:10] LABS: Glucose,Whole Blood 179 mg/dL (75-99)
--- NOTE | 2016-12-07 08:36 | DS ---
DATE OF ADMISSION: 11/30/2016 DATE OF DISCHARGE: 12/06/2016 Patient was discharged yesterday. The patient is being evaluated for rehab, disposition to rehab [facility]. Patient ended up staying in the hospital. Patient was seen and examined today. PHYSICAL EXAMINATION: GENERAL: The patient is alert and oriented x3, not in any acute distress. Well developed, well nourished. HEENT: Pupils are round and equally reacting to light. EOMI. No scleral icterus. No conjunctival pallor. Normocephalic, atraumatic. No pharyngeal erythema. No thyromegaly. CARDIOVASCULAR: S1 and S2 present. No murmurs, rubs, or gallops. PULMONARY: Chest is clear to auscultation, no wheezing or crackles. ABDOMEN: Soft, nontender, nondistended, normoactive bowel sounds. No palpable organomegaly. MUSCULOSKELETAL: No joint swelling or deformity. EXTREMITIES: No cyanosis, clubbing, or pedal edema. NEUROLOGICAL: Gross neurological examination did not reveal any focal deficits. SKIN: No rashes. VITAL SIGNS: Stable. No significant change in physical exam compared to yesterday. Patient remains on 1 liter of, oxygen. We are trying to taper it down. We will get pulmonology to re-evaluate the patient before discharge and chest x-ray from yesterday showed chronic interstitial changes secondary to pulmonary fibrosis. Beyond that, no significant abnormality was appreciated and patient will be discharged today. Please refer to my dictation of discharge summary from yesterday for further details. Patient will continue 3 more days of Augmentin along with 4 more days of Fluconazole. No other changes are being made. Please consider my yesterday's discharge summary as progress note.
== END 2016-12-06 14:30 | DRG 698 ==
LOC: EC 09:14 → 5MS5E 11:21
PROVIDERS: ADMIT Internal Medicine; ATTEND Internal Medicine
DX: T83.511A Infection and inflammatory reaction due to indwelling urethral catheter, initial encounter (principal); A41.9 Sepsis, unspecified organism; G82.50 Quadriplegia, unspecified; Z93.0 Tracheostomy status; J96.10 Chronic respiratory failure, unspecified whether with hypoxia or hypercapnia; J98.11 Atelectasis; N39.0 Urinary tract infection, site not specified; M19.90 Unspecified osteoarthritis, unspecified site; Z87.828 Personal history of other (healed) physical injury and trauma; Z86.718 Personal history of other venous thrombosis and embolism; Z74.01 Bed confinement status; Z87.891 Personal history of nicotine dependence; Z98.1 Arthrodesis status; Z93.1 Gastrostomy status; Z79.4 Long term (current) use of insulin; Z79.899 Other long term (current) drug therapy
CPT/HCPCS: 36415; 71010; 71020; 80048; 80053; 81001; 82550; 82553; 83605; 83735; 84484; 85025; 85027; 85610; 85730; 87040; 87070; 87086; 87205; 87502; 93005; 94640; 94760; 96374; 99285